=== PATIENT | male | born 1945 | race Two or more races ===

== ENCOUNTER 2021-07-22 09:15 | Outpatient (CLI) | payer OTHER ==
[~2021-07-22 09:15] MED LIST: ALDACTONE25 MG PO; ALTACE10 MG PO; Asa-EC 81MG TAB PO; CIPRO500 MG PO; DITROPAN XL5 MG PO; FLAGYL500MG PO; Lipitor 40MG PO; OMEPRAZOLE20 M1 PO; SIMVASTATIN20 MG PO; SYNTHROID88 MCG PO; TENORMIN50 M1 PO; Tenormin 50MG TAB PO; Zestril PO
== END 2021-07-22 09:17 | disposition home or self-care (01) ==
LOC: SONOGRAMA 09:15
PROVIDERS: ATTEND Internal Medicine Gastroenterology
DX: R10.84 Generalized abdominal pain (principal)

== ENCOUNTER → 2022-07-19 | Outpatient (CLI) | payer OTHER | END | disposition home or self-care (01) | LOC: SONOGRAMA 08:36 | PROVIDERS: ATTEND Physical Medicine & Rehabilitation Pain Medicine | DX: M25.511 Pain in right shoulder (principal); M75.101 Unspecified rotator cuff tear or rupture of right shoulder, not specified as traumatic ==

== ENCOUNTER 2023-01-25 12:35 | Outpatient (CLI) | payer OTHER | END 2023-01-25 13:21 | disposition home or self-care (01) | LOC: SONOGRAMA 12:35 | DX: E04.8 Other specified nontoxic goiter (principal) ==

== ENCOUNTER → 2025-06-07 | Emergency (ER) | payer OTHER ==
[~2025-06-07] VITALS: Ht 172.7 cm; Wt 84.8 kg
[~2025-06-07] MED LIST changes: +BENZONATATE200 M1 PO; +LEVO-T50 MCG PO; +MUCINEX DM ER1 EAC1 PO
[2025-06-07 12:51] LABS: BASO % 0.5 % (0.1-1.2); EOS # 0.20 (0.04-0.54); EOS % 2.2 % (0.7-7.0); LYMPH # 1.71 (1.18-3.74); LYMPH % 18.7 % (19.3-53.1); MEAN PLATELET VOLUME 9.60 fl (9.4-12.4); MONO # 0.91 (0.24-0.82); MONO % 9.9 % (4.7-12.5); NEUT # 6.25 (1.56-6.13); NEUT % 68.4 % (34.0-71.1); RED CELL DISTRIBUTION WIDTH 12.1 % (11.6-14.4)
[2025-06-07 13:04] LABS: ERYTHROCYTE SEDIMENTATION RATE 32 mm/hr (0-20)
[2025-06-07 13:18] LABS: INR 1.02
[2025-06-07 13:23] LABS: ALT/SGPT 32.0 U/L (12-78); AST/SGOT 15.0 U/L (15-37); BILIRUBIN TOTAL 1.09 mg/dL (0.3-1.2); BUN CREA RATIO 24.0 (7.0-25.0); CREATININE SERUM 0.71 mg/dL (0.70-1.30); GFR 107.3; GLOBULINA 3.8 G/DL (2.4-3.5); GLUCOSE FASTING 109.0 mg/dL (65-100); OSMOLALITY SERUM 278.0 MOSM/KG (275-295)
[2025-06-07 14:14] LABS: URINE APPEARANCE Clear; URINE BILIRRUBIN Negative (NEGATIVE); URINE BLOOD Moderate; URINE COLOR Dark Yellow; URINE GLUCOSE Negative (NEGATIVE); URINE KETONE Trace (NEGATIVE); URINE LEUKOCYTE Trace; URINE NITRATE Negative; URINE PROTEIN Negative (NEGATIVE); URINE UROBILINOGEN 1.0 E.U./dl
[2025-06-07 14:24] LABS: URINE BACTERIA 34.3 uL (0.0-1933); URINE CAST 1.55 uL (0.0-1.40); URINE EPITHELIAL CELLS 36.7 uL (0.0-38.8); URINE RBC 67.2 uL (0.0-20.8); URINE WBC 8.1 uL (0.0-23.2)
[2025-06-07 14:29] LABS: COVID-19 AG NEGATIVE (NEGATIVE)
== END | disposition home or self-care (01) ==
LOC: ER 10:23
PROVIDERS: Physician Assistant Medical
DX: J06.9 Acute upper respiratory infection, unspecified (principal); E03.8 Other specified hypothyroidism; J31.0 Chronic rhinitis; Z20.822 Contact with and (suspected) exposure to COVID-19